=== PATIENT | male | born 1985 | race Caucasian/White ===

== ENCOUNTER 2016-11-08 13:50 | Emergency (ER) | payer SELFPAY ==
[~2016-11-08 13:50] MED LIST: ERYT1OIN6 EACHEYE; HYDR-971 PO
[2016-11-08 14:08] VITALS: BP 130/67
[2016-11-08] MEDS ORDERED: NAPROXEN 500 MG TABLET PO STA (14:16)
[2016-11-08] MEDS ORDERED: HYDROCODONE/APAP 5/325MG TABLET. PO ONE (14:30)
--- NOTE | 2016-11-08 14:33 | PHYS DOC ---
Past Medical History Past Medical History: No Pertinent History Past Surgical History: No Surgical History Alcohol Use: Occasionally Drug Use: Marijuana Adult General Chief Complaint Chief Complaint: HAND PROBLEM HPI HPI Patient is a 31 year old male with no significant medical history who presents with right hand pain that began a couple days prior to coming to the ED after pieces of lumber fell on his right hand from a truck bed. Review of Systems Review of Systems Constitutional: Denies fever or chills [] Musculoskeletal: Right hand pain Integument: Denies rash or skin lesions [] Neurologic: Denies headache, focal weakness or sensory changes [] Endocrine: Denies polyuria or polydipsia [] Current Medications Current Medications Current Medications Medications (Trade) Dose Ordered Sig/Krissy Start Time Stop Time Status Last Admin Dose Admin Acetaminophen/ Hydrocodone Bitart (Lortab 5/325) 1 tab 1X ONCE 11/08/16 14:30 11/08/16 14:31 DC 11/08/16 14:51 1 TAB Naproxen (Naprosyn) 500 mg 1X STAT 11/08/16 14:16 11/08/16 14:26 DC 11/08/16 14:51 500 MG Allergies Allergies Allergies Coded Allergies Type Severity Reaction Last Updated Verified No Known Drug Allergies 02/24/15 No Physical Exam Physical Exam Constitutional: Well developed, well nourished, no acute distress, non-toxic appearance. [] Skin: Warm, dry, no erythema, no rash. [] Back: No tenderness, no CVA tenderness. [] Extremities: Right hand with no obvious deformity. No ecchymosis noted on the right hand. Tenderness on palpation on the right hand proximal phalanges on the dorsal side. Full range of motion to the right hand. +2 right radial pulse. Cap refill less than 2 seconds the right upper extremity. Sensation intact to the right upper extremity. Adequate ulna radial medial sensation to the right hand. Neurologic: Alert and oriented X 3, normal motor function, normal sensory function, no focal deficits noted. [] Psychologic: Affect normal, judgement normal, mood normal. [] Current Patient Data Vital Signs Vital Signs Date Time Temp Pulse Resp B/P Pulse Ox O2 Delivery O2 Flow Rate FiO2 11/08/16 14:51 Room Air 11/08/16 14:08 94 94 EKG EKG [] Radiology/Procedures Radiology/Procedures [] Course & Med Decision Making Course & Med Decision Making Pertinent Labs and Imaging studies reviewed. (See chart for details) Patient is in the ED with right hand contusion after pieces of lumber fell on his right hand. Right hand x-ray interpreted by radiologist is negative for any acute findings. Jagdish wrap was applied to the right hand by the Ed RN, neurovascular exam in normal with Cap refill <2 seconds. Ice elevation was encouraged. Discharged with Ultracet. Follow-up with ortho in one week. Dragon Disclaimer Dragon Disclaimer This electronic medical record was generated, in whole or in part, using a voice recognition dictation system. Departure Departure Impression: Primary Impression: Contusion of right hand Disposition: HOME, SELF-CARE Condition: STABLE Referrals: NO PCP (PCP) YANET STANFORD MD Follow-up with the provided orthopedic doctor in a week Patient Instructions: Contusion Additional Instructions: You were seen for right hand contusion. Keep the Jagdish wrap on as tolerated. Apply ice to the hand and elevate it. Your x-rays were negative. Follow-up with the provided orthopedic doctor in a week if pain continues. Take the prescribed medicines as needed. Scripts Tramadol Hcl/Acetaminophen (Ultracet Tablet)1 Each Tablet1 Tab PO Q6HRS #30 TAB Prov:MAYURI FUENTES APRN 11/08/16 Problem Qualifiers Primary Impression: Contusion of right hand Encounter type: initial encounter Qualified Code: S60.221A - Contusion of right hand, initial encounter MAYURI FUENTES APRN Nov 08, 2016 14:33
--- NOTE | 2016-11-08 14:40 | RAD ---
Right hand, 3 views, 11/08/2016: History: Pain, injury A small calcific density is noted along the: aspect of the base of the fifth metacarpal. There are sclerotic bony margins at this level suggesting that this is an old injury. No definite acute fracture or dislocation is identified. The soft tissues are unremarkable. IMPRESSION: No acute bony abnormality is detected.
[2016-11-08] MEDS ORDERED: TRAM1TAB49 PO (15:20)
== END 2016-11-08 15:26 | disposition home or self-care (01) ==
LOC: ER 13:50
DX: S60.221A Contusion of right hand, initial encounter (principal); F12.10 Cannabis abuse, uncomplicated; W20.8XXA Other cause of strike by thrown, projected or falling object, initial encounter; Y93.89 Activity, other specified; Y92.89 Other specified places as the place of occurrence of the external cause; Y99.8 Other external cause status
CPT/HCPCS: 73130; 99284

== ENCOUNTER 2016-12-21 15:12 | Emergency (ER) | payer SELFPAY ==
[~2016-12-21] VITALS: Ht 162.6 cm; Wt 68.0 kg
[~2016-12-21 15:12] MED LIST changes: +TRAM1TAB49 PO
[2016-12-21 15:47] VITALS: BP 128/71
--- NOTE | 2016-12-21 15:51 | RAD ---
EXAM: Left hand 3 views. HISTORY: Left fourth finger injury. COMPARISON: None. FINDINGS: There is an avulsion fracture along the volar base of the fourth middle phalanx with surrounding soft tissue swelling. Alignment is maintained. No fractures are seen throughout the remainder of the hand. IMPRESSION: 1. Avulsion fracture along the volar base of the fourth middle phalanx.
--- NOTE | 2016-12-21 16:09 | PHYS DOC ---
Past Medical History Past Medical History: No Pertinent History Past Surgical History: No Surgical History Additional Information: 1 PACK/DAY Alcohol Use: Occasionally Additional Information: 6 PACK/WEEK Drug Use: Marijuana Adult General Chief Complaint Chief Complaint: FINGER INJURY HPI HPI Patient is a 31 year old male who presents with a finger injury. Patient reports he was climbing into a semi truck yesterday evening when he slipped, and his finger got caught in a hole in the door of the semi. He has been having pain the affected finger since then. He was having enough pain at work today that his boss told him he needed to go home since it was affecting his work. He has not taken anything for pain. No other acute complaints. Review of Systems Review of Systems Constitutional: Denies fever or chills Respiratory: Denies cough or shortness of breath Cardiovascular: Denies chest pain GI: Denies abdominal pain, nausea, vomiting, or diarrhea Musculoskeletal: L 4th finger pain Neurologic: Denies headache, focal weakness or sensory changes Current Medications Current Medications Current Medications Medications (Trade) Dose Ordered Sig/Krissy Start Time Stop Time Status Last Admin Dose Admin Naproxen (Naprosyn) 500 mg 1X ONCE 12/21/16 16:15 12/21/16 16:16 DC Allergies Allergies Allergies Coded Allergies Type Severity Reaction Last Updated Verified No Known Drug Allergies 02/24/15 No Physical Exam Physical Exam Constitutional: Well developed, well nourished, no acute distress, non-toxic appearance HENT: Normocephalic, atraumatic Eyes: EOMI, conjunctiva normal, no discharge Neck: No stridor Pulmonary: No respiratory distress Skin: Warm, dry Neurologic: Alert and oriented X 3 Musculoskeletal: L 4th finger swollen compared to other fingers; flexion of 4th finger limited by swelling; extension intact; sensation to light touch intact, brisk cap refill; PIP joint generally TTP Psychologic: Affect normal, judgement normal, mood normal Current Patient Data Vital Signs Vital Signs Date Time Temp Pulse Resp B/P Pulse Ox O2 Delivery O2 Flow Rate FiO2 12/21/16 15:47 98.0 94 18 98 Room Air 98.0 EKG EKG [] Radiology/Procedures Radiology/Procedures X-ray L hand: IMPRESSION: 1. Avulsion fracture along the volar base of the fourth middle phalanx. Course & Med Decision Making Course & Med Decision Making Pertinent Labs and Imaging studies reviewed. (See chart for details) Patient is 31-year-old male who presents with left fourth finger injury. X-ray already obtained, results as above. Dose of naproxen ordered for pain control. As patient has limited flexion (although this appears due to swelling rather than flexor tendon injury), I spoke with Dr. Smith to discuss case. Per his recommendation will brant tape the finger. We will discharge him home and have him follow-up with ortho as an outpatient. Discharged with prescription for pain medication. Given instructions for follow-up and return precautions. Dragon Disclaimer Dragon Disclaimer This electronic medical record was generated, in whole or in part, using a voice recognition dictation system. Departure Departure Impression: Primary Impression: Fracture of finger of left hand Disposition: HOME, SELF-CARE Condition: STABLE Referrals: NO PCP (PCP) YANET SMITH MD Patient Instructions: Finger Fracture Additional Instructions: Thank you for allowing us to provide care today in the Emergency Department. Take the provided medication as directed. Use caution when taking the hydrocodone as it can make you drowsy. Schedule a follow up appointment with your primary care doctor. Return promptly to the Emergency Department if you develop any new or concerning symptoms. Scripts Naproxen 500 Mg [id number] Mg PO BID PRN PAIN #30 Prov:FIDEL GOFF MD 12/21/16 Hydrocodone/Apap 5-325 ([place] 5-325 Tablet)1 Each Tablet1 Tab PO PRN Q6HRS PRN PAIN #15 TAB Prov:FIDEL GOFF MD 12/21/16 FIDEL GOFF MD Dec 21, 2016 16:08
[2016-12-21] MEDS ORDERED: NAPROXEN 500 MG TABLET PO ONE (16:15)
[2016-12-21] MEDS ORDERED: HYDR-971 PO (16:23)
[2016-12-21] MEDS ORDERED: NAPR500T3 PO (16:23)
== END 2016-12-21 16:31 | disposition home or self-care (01) ==
LOC: ER 15:12
DX: S62.625A Displaced fracture of middle phalanx of left ring finger, initial encounter for closed fracture (principal); F12.10 Cannabis abuse, uncomplicated; F17.210 Nicotine dependence, cigarettes, uncomplicated; W23.0XXA Caught, crushed, jammed, or pinched between moving objects, initial encounter; Y93.39 Activity, other involving climbing, rappelling and jumping off; Y92.89 Other specified places as the place of occurrence of the external cause; Y99.8 Other external cause status
CPT/HCPCS: 73130; 99284

== ENCOUNTER 2017-04-07 23:50 | Emergency (ER) | payer SELFPAY ==
[~2017-04-07] VITALS: Ht 162.6 cm; Wt 56.7 kg
[~2017-04-07 23:50] MED LIST changes: +NAPR500T3 PO; -TRAM1TAB49 PO; +TRAM1TAB56 PO
[2017-04-08] MEDS ORDERED: IV NORMAL SALINE 1000ML BAG 1,000 ML IV SCH (00:15)
[2017-04-08] MEDS ORDERED: 0.9 % SODIUM CHLORIDE 10 ML DISP.SYRIN. IV PRN (00:15)
[2017-04-08] MEDS ORDERED: TETRACAINE 0.5% OPHTH SOLUTION 4ML BOTTLE. OU ONE (00:30)
[2017-04-08] MEDS ORDERED: KETOROLAC TROMETHAMINE 30 MG/ML INJ. IV ONE (00:30)
[2017-04-08] MEDS ORDERED: FLUORESCEIN OPHTH TEST STRIP. OU ONE (00:30)
[2017-04-08 00:37] LABS: BASE EXCESS COOX -2 mmol/L (-3-3); CARBON MONOXIDE 7.7 % (0.0-1.9); HCO3 COOX 22 mmol/L (21-28); METHEMOGLOBIN 0.3 % (0.0-1.9); OXYHEMOGLOBIN 89.7 %; PCO2 COOX 35 mmHg (35-46); PH COOX 7.42 (7.35-7.45); PO2 COOX 111 mmHg (85-108); SAT O2 COOX 98 % (92-99); TOTAL HEMOGLOBIN 14.8 g/dL
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
[2017-04-08] MEDS ORDERED: NAPR500T PO (01:59)
[2017-04-08] MEDS ORDERED: TOBR5DRO13 EACHEYE (01:59)
[2017-04-08] MEDS ORDERED: SILV20CR14 TP (01:59)
[2017-04-08] MEDS ORDERED: HYDR-2758 PO (01:59)
[2017-04-08 02:02] VITALS: BP 132/84
--- NOTE | 2017-04-08 07:25 | RAD ---
Chest, 2 views, 04/08/2017: History: Cough Comparison is made to a study from 07/08/2016. The heart size and pulmonary vascularity are normal. No pulmonary infiltrates are seen. There is no evidence of pleural fluid. IMPRESSION: No acute cardiopulmonary abnormality is detected.
--- NOTE | 2017-04-08 07:30 | RAD ---
Bilateral feet, 6 views, 04/08/2017: History: Foot pain, stepped on glass, possible foreign body No fracture or dislocation is identified. No radiopaque foreign body is evident in the soft tissues. IMPRESSION: No significant abnormality is detected.
== END 2017-04-08 02:19 | disposition home or self-care (01) ==
LOC: ER 23:50
DX: T21.11XA Burn of first degree of chest wall, initial encounter (principal); S05.02XA Injury of conjunctiva and corneal abrasion without foreign body, left eye, initial encounter; S05.01XA Injury of conjunctiva and corneal abrasion without foreign body, right eye, initial encounter; S91.332A Puncture wound without foreign body, left foot, initial encounter; S91.331A Puncture wound without foreign body, right foot, initial encounter; J70.5 Respiratory conditions due to smoke inhalation; R05 Cough; F17.210 Nicotine dependence, cigarettes, uncomplicated; F14.10 Cocaine abuse, uncomplicated; F12.10 Cannabis abuse, uncomplicated; I10 Essential (primary) hypertension; X08.8XXA Exposure to other specified smoke, fire and flames, initial encounter; Y93.89 Activity, other specified; Y92.89 Other specified places as the place of occurrence of the external cause; Y99.8 Other external cause status
CPT/HCPCS: 36600; 71020; 73630; 82805; 96361; 96374; 99285; J1885; J7030

== ENCOUNTER 2017-04-16 02:13 | Emergency (ER) | payer OTHER ==
[~2017-04-16] VITALS: Ht 162.6 cm; Wt 59.0 kg
[~2017-04-16 02:13] MED LIST changes: +HYDR-2758 PO; +NAPR500T PO; +SILV20CR14 TP; +TOBR5DRO13 EACHEYE
[2017-04-16 02:31] VITALS: BP 125/77
--- NOTE | 2017-04-16 03:13 | PHYS DOC ---
Past Medical History Past Medical History: No Pertinent History Past Surgical History: No Surgical History Alcohol Use: Heavy Drug Use: Cocaine, Marijuana Adult General Chief Complaint Chief Complaint: FINGER INJURY HPI HPI 32-year-old male with a history of multiple prior left fourth digit injury with multiple prior sprains now presents to the emergency department with a sprain of the same finger. 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 Common for him to get the finger snagged and twisted during this process patient is reinjured it and it's been sore and swollen since so he came to emergency department for evaluation Review of Systems Review of Systems Constitutional: Denies fever or chills [] Eyes: Denies change in visual acuity, redness, or eye pain [] HENT: Denies nasal congestion or sore throat [] Respiratory: Denies cough or shortness of breath [] Cardiovascular: No additional information not addressed in HPI [] GI: Denies abdominal pain, nausea, vomiting, bloody stools or diarrhea [] : Denies dysuria or hematuria [] Musculoskeletal: Denies back pain or joint pain [] Integument: Denies rash or skin lesions [] Neurologic: Denies headache, focal weakness or sensory changes [] Endocrine: Denies polyuria or polydipsia [] Allergies Allergies Allergies Coded Allergies Type Severity Reaction Last Updated Verified No Known Drug Allergies 02/24/15 No Physical Exam Physical Exam Well appearing male in no acute distress soft tissue swelling in the distribution of the PIP left fourth digit. No bony tenderness or deformity. No skin changes. MCP and DIP unremarkable. Patient does have flexion and extension intact Constitutional: Well developed, well nourished, no acute distress, non-toxic appearance. [] HENT: Normocephalic, atraumatic, bilateral external ears normal, oropharynx moist, no oral exudates, nose normal. [] Eyes: EOMI, conjunctiva normal, no discharge. [] Neck: Normal range of motion, no tenderness, supple, no stridor. [] Cardiovascular: No tachycardia in triage Lungs & Thorax: Symmetrical chest wall excursion with no tachypnea] Abdomen: Normal appearing abdomen Skin: Warm, dry, no erythema, no rash. [] Back: No tenderness, no CVA tenderness. [] Extremities: No tenderness, no cyanosis, no clubbing, ROM intact, no edema. [] Neurologic: Alert and oriented X 3, normal motor function, normal sensory function, no focal deficits noted. [] Psychologic: Affect normal, judgement normal, mood normal. [] Current Patient Data Vital Signs Vital Signs Date Time Temp Pulse Resp B/P (MAP) Pulse Ox O2 Delivery O2 Flow Rate FiO2 04/16/17 02:31 98.4 72 18 125/77 (93) 97 Room Air 98.4 EKG EKG [] Radiology/Procedures Radiology/Procedures Procedure aluminum foam splint applied by nurseCANDIDO M.D. 5 inch aluminum foam splint shaved by me and applied the volar aspect of left fourth digit and taped in place. Neurovascularly intact status post application. Patient tolerated procedure well no complications [] Course & Med Decision Making Course & Med Decision Making Pertinent Labs and Imaging studies reviewed. (See chart for details) Signs and symptoms consistent with sprain of the left fourth digit which patient has had multiple times previously and has chronic swelling and soft tissue deformity as a result. Negative for acute fracture or dislocation. Aluminum/foam splint applied C note. The pro-rest ice and elevate and follow-up with his doctor, Workmen's Compensation, and hand surgery with Workmen's Compensation referral as needed. No further workup or treatment indicated at this time patient agrees with outpatient follow-up and strict return precautions given [] Dragon Disclaimer Dragon Disclaimer This electronic medical record was generated, in whole or in part, using a voice recognition dictation system. Departure Departure Impression: Primary Impression: Sprain of ring finger Disposition: 01 HOME, SELF-CARE Condition: IMPROVED Referrals: NO PCP (PCP) Patient Instructions: Finger Sprain, [id number] Additional Instructions: You have sprained the same finger of the sprain multiple times before. Rest apply ice and elevate above your heart whenever possible. Wear aluminum foam splint until follow-up with your doctor, Workmen's Compensation, and hand surgery as needed. In the future be sure to take the necessary precautions and be careful not to reinjure this finger again. DIANA MUNOZ MD Apr 16, 2017 03:13
[2017-04-16] MEDS ORDERED: IBUPROFEN 800 MG TABLET. PO ONE (03:30)
--- NOTE | 2017-04-16 07:14 | RAD ---
3 view left hand study History: Injured ring finger. Pain. Findings: No acute fracture or dislocation or osteolytic process is seen. IMPRESSION: No acute fracture.
== END 2017-04-16 03:30 | disposition home or self-care (01) ==
LOC: ER 02:13
DX: S63.615A Unspecified sprain of left ring finger, initial encounter (principal); F10.10 Alcohol abuse, uncomplicated; F12.10 Cannabis abuse, uncomplicated; F14.10 Cocaine abuse, uncomplicated; X58.XXXA Exposure to other specified factors, initial encounter; Y93.89 Activity, other specified; Y92.89 Other specified places as the place of occurrence of the external cause; Y99.8 Other external cause status
CPT/HCPCS: 29130; 73130; 99284

== ENCOUNTER 2017-10-25 12:32 | Emergency (ER) | payer SELFPAY, OTHER | END 2017-10-25 15:04 | disposition home or self-care (01) | LOC: ER 12:32 | DX: S63.635A Sprain of interphalangeal joint of left ring finger, initial encounter (principal); F12.10 Cannabis abuse, uncomplicated; F14.10 Cocaine abuse, uncomplicated; W23.0XXA Caught, crushed, jammed, or pinched between moving objects, initial encounter; Y93.89 Activity, other specified; Y92.89 Other specified places as the place of occurrence of the external cause; Y99.8 Other external cause status | CPT/HCPCS: 73140; 99284 ==

== ENCOUNTER 2018-02-03 08:54 | Emergency (ER) | payer SELFPAY | END 2018-02-03 09:55 | disposition home or self-care (01) | LOC: ER 08:54 | DX: B30.9 Viral conjunctivitis, unspecified (principal); H10.89 Other conjunctivitis; F10.20 Alcohol dependence, uncomplicated; F14.10 Cocaine abuse, uncomplicated; F12.10 Cannabis abuse, uncomplicated | CPT/HCPCS: 99283 ==

== ENCOUNTER 2018-04-15 10:01 | Emergency (ER) | payer SELFPAY ==
[2018-04-15 10:35] LABS: ADD MAN DIFF? NO
[2018-04-15 10:37] LABS: BASO % 1 % (0-3); EOS # 0.1 x10^3/uL (0.0-0.7); EOS % 2 % (0-3); HEMATOCRIT 46.2 % (39.0-53.0); HEMOGLOBIN 15.8 g/dL (13.0-17.5); LYMPH # 1.4 x10^3/uL (1.0-4.8); LYMPH % 22 % (24-48); MEAN CORPUSCULAR HEMOGLOBIN 32 pg (25-35); MEAN CORPUSCULAR HGB CONC 34 g/dL (31-37); MEAN CORPUSCULAR VOLUME 95 fL (79-100); MONO # 0.6 x10^3/uL (0.0-1.1); MONO % 10 % (0-9); NEUT # 4.1 x10^3uL (1.8-7.7); NEUT % 66 % (31-73); PLATELET COUNT 181 x10^3/uL (140-400); RED BLOOD COUNT 4.87 x10^6/uL (4.30-5.70); RED CELL DISTRIBUTION WIDTH 13.7 % (11.5-14.5); WHITE BLOOD COUNT 6.3 x10^3/uL (4.0-11.0)
[2018-04-15] MEDS: IV NORMAL SALINE 1000ML BAG 1,000 ML IV ×2 (10:37→11:08)
[2018-04-15] MEDS: ONDANSETRON PF 4 MG/2 ML VIAL. IV (10:37)
[2018-04-15 10:47] LABS: ANION GAP 9 (6-14); BLOOD UREA NITROGEN 22 mg/dL (8-26); BUN/CREATININE RATIO 24 (6-20); CARBON DIOXIDE 27 mmol/L (21-32); CHLORIDE 100 mmol/L (98-107); CREATININE 0.9 mg/dL (0.7-1.3); GFR 98.4; GLUCOSE 124 mg/dL (70-99); POTASSIUM 4.2 mmol/L (3.5-5.1); SODIUM 136 mmol/L (136-145)
[2018-04-15 10:53] LABS: ALK PHOS 119 U/L (46-116); ALT (SGPT) 30 U/L (16-63); AST (SGOT) 18 U/L (15-37); CREATINE KINASE 142 U/L (39-308); TOTAL BILIRUBIN 0.4 mg/dL (0.2-1.0); TOTAL PROTEIN 8.1 g/dL (6.4-8.2)
[2018-04-15 11:48] LABS: BILIRUBIN,URINE NEGATIVE (NEG); CLARITY,URINE CLEAR; COLOR,URINE YELLOW; GLUCOSE,URINE NEGATIVE (NEG); NITRITE,URINE NEGATIVE (NEG); PROTEIN,URINE NEGATIVE (NEG-TRACE); UROBILINOGEN,URINE 0.2 mg/dL (0.2 mg/dL)
[2018-04-15 11:52] LABS: SQUAMOUS EPITHELIAL CELL,UR FEW /LPF
[2018-04-15 11:53] LABS: BACTERIA,URINE 0 /HPF (0-FEW); RBC,URINE 0 /HPF (0-2); WBC,URINE OCC /HPF (0-4)
== END 2018-04-15 12:00 | disposition home or self-care (01) ==
LOC: ER 10:01
DX: E86.0 Dehydration (principal)
CPT/HCPCS: 36415; 80053; 81001; 82550; 85025; 96361; 96374; 99284; J2405; J7030

== ENCOUNTER 2018-04-25 04:45 | Emergency (ER) | payer SELFPAY ==
[2018-04-25] MEDS: HYDROcodone/APAP 5/325MG 1 TAB TABLET PO (05:05)
[2018-04-25] MEDS: KETOROLAC 30 MG/ML INJ. IM (05:06)
== END 2018-04-25 05:11 | disposition home or self-care (01) ==
LOC: ER 04:45
DX: S02.5XXA Fracture of tooth (traumatic), initial encounter for closed fracture (principal); F10.10 Alcohol abuse, uncomplicated; X58.XXXA Exposure to other specified factors, initial encounter; Y93.89 Activity, other specified; Y92.89 Other specified places as the place of occurrence of the external cause; Y99.8 Other external cause status
CPT/HCPCS: 96372; 99283; J1885

== ENCOUNTER 2020-07-05 18:53 | Emergency (ER) | payer SELFPAY ==
[~2020-07-05] VITALS: Ht 162.6 cm; Wt 72.7 kg
[~2020-07-05 18:53] MED LIST changes: +AMOX500C PO; +CETI10TA74 PO; -HYDR-2758 PO; +HYDR-2761 PO; +HYDR-3164 PO; -HYDR-971 PO; +KETO5DRO4 EACHEYE; +NAPR-514 PO; +NAPR-683 PO; -NAPR500T PO; -NAPR500T3 PO; +TOBR5DRO6 EACHEYE
[2020-07-05 20:11] LABS: BASO % 0 % (0-3); EOS # 0.4 x10^3/uL (0.0-0.7); EOS % 5 % (0-3); HEMATOCRIT 30.3 % (39.0-53.0); HEMOGLOBIN 10.5 g/dL (13.0-17.5); LYMPH # 1.3 x10^3/uL (1.0-4.8); LYMPH % 18 % (24-48); MEAN CORPUSCULAR HEMOGLOBIN 33 pg (25-35); MEAN CORPUSCULAR HGB CONC 35 g/dL (31-37); MEAN CORPUSCULAR VOLUME 97 fL (79-100); MONO # 0.6 x10^3/uL (0.0-1.1); MONO % 8 % (0-9); NEUT % 69 % (31-73); PLATELET COUNT 186 x10^3/uL (140-400); RED BLOOD COUNT 3.14 x10^6/uL (4.30-5.70); RED CELL DISTRIBUTION WIDTH 12.8 % (11.5-14.5); WHITE BLOOD COUNT 7.3 x10^3/uL (4.0-11.0)
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
[2020-07-05 20:22] LABS: CALCIUM 8.6 mg/dL (8.5-10.1); CREATININE 0.8 mg/dL (0.7-1.3); GFR 111.3
[2020-07-05 20:28] LABS: ALBUMIN/GLOBULIN RATIO 0.8 (1.0-1.7); TOTAL BILIRUBIN 0.7 mg/dL (0.2-1.0); TOTAL PROTEIN 6.9 g/dL (6.4-8.2)
--- NOTE | 2020-07-05 20:58 | RAD ---
EXAM: Frontal view of the chest, AP views of the abdomen in upright and supine positions. CLINICAL INDICATION: Reason: CONSTIPATION / Spl. Instructions: / History: COMPARISON: None. FINDINGS and IMPRESSION: The heart is not enlarged. Mediastinal and hilar contours are normal. Emphysematous changes are seen. Left lung base airspace opacities, possibly atelectasis or developing consolidation. Small left pleural effusion. No pneumothorax. No abnormal small or large bowel dilatation. Moderate to large volume colonic stool content is seen. No abnormal soft tissue mass effect. No suspicious calcifications are seen. No free intraperitoneal gas. Electronically signed by: Milton Falk MD (07/05/2020 8:55 PM) [facility]
[2020-07-05 21:39] LABS: BILIRUBIN,URINE SMALL (NEG); NITRITE,URINE NEGATIVE (NEG); PH,URINE 7.5 (<5.0-8.0); PROTEIN,URINE NEGATIVE (NEG-TRACE)
[2020-07-05 21:43] LABS: COLOR,URINE DK YELLOW
[2020-07-05 21:44] LABS: SQUAMOUS EPITHELIAL CELL,UR OCC /LPF
[2020-07-05 21:45] LABS: AMPHETAMINE/METHAMPHETAMINE NEG (NEG); BARBITURATES NEG (NEG); BENZODIAZEPINES NEG (NEG); CANNABINOIDS POS (NEG); COCAINE NEG (NEG); METHADONE NEG (NEG); OPIATES POS (NEG); PHENCYCLIDINE NEG (NEG)
[2020-07-05 21:47] LABS: BACTERIA,URINE 0 /HPF (0-FEW); RBC,URINE 0 /HPF (0-2); WBC,URINE 0 /HPF (0-4)
[2020-07-05 21:48] LABS: AMORPHOUS SEDIMENT,UR PRESENT /HPF; CLARITY,URINE HAZY
[2020-07-05] MEDS ORDERED: CLIN300C8 PO (22:28)
[2020-07-05] MEDS ORDERED: SENN1TAB62 PO (22:30)
[2020-07-05 23:46] VITALS: BP 132/78
== END 2020-07-05 23:59 | disposition home or self-care (01) ==
LOC: ER 18:53
DX: T85.79XA Infection and inflammatory reaction due to other internal prosthetic devices, implants and grafts, initial encounter (principal); J18.9 Pneumonia, unspecified organism; K59.00 Constipation, unspecified; F17.200 Nicotine dependence, unspecified, uncomplicated; Y71.3 Surgical instruments, materials and cardiovascular devices (including sutures) associated with adverse incidents; Y92.89 Other specified places as the place of occurrence of the external cause
CPT/HCPCS: 36415; 74022; 80053; 80307; 81001; 83690; 85025; 99285

== ENCOUNTER 2021-01-16 03:39 | Emergency (ER) | payer SELFPAY ==
[~2021-01-16] VITALS: Ht 162.6 cm; Wt 66.2 kg
[~2021-01-16 03:39] MED LIST changes: +CLIN300C9 PO; +SENN1TAB62 PO
[2021-01-16 03:40] VITALS: BP 104/76
[2021-01-16] MEDS ORDERED: LIDOCAINE 2%/EPI 1:100,000 20 ML VIAL. ONE (03:57)
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
[2021-01-16] MEDS ORDERED: LIDOCAINE 2%/EPI 1:100,000 20 ML VIAL. INJ ONE (04:30)
--- NOTE | 2021-01-16 04:43 | RAD ---
PQRS Compliance Statement: One or more of the following individualized dose reduction techniques were utilized for this examinat ion: 1. Automated exposure control 2. Adjustment of the mA and/or kV according to patient size 3. Use of iterative reconstruction technique CT HEAD WITHOUT CONTRAST History: Reason: fall, etoh use, unknown loc / Spl. Instructions: / History: Comparison: CT head without contrast June 26, 2018. Procedure: Axial images are obtained of the head from the skull base through the vertex without IV co ntrast. Findings: The ventricles and sulci are normal for the patient's age. No mass-effect, midline shift, hemorrhage, extra-axial fluid collection, or obvious acute infarction is identified. Basilar cisterns are patent. Bone windows demonstrate no acute calvarial abnormality. Severe mucosal thickening of the bilateral ethmoid sinuses.. Mastoid air cells are well aerated. IMPRESSION: No acute intracranial abnormality. Electronically signed by: Scottie Roth MD (01/16/2021 4:40 AM) [facility]
--- NOTE | 2021-01-16 04:45 | RAD ---
RIGHT TIBIA FIBULA AP LATERAL Clinical Indication: Reason: fall, question retained glass to left urena Comparison: None. Findings: The knee and ankle joints are grossly intact. There is no acute fracture or dislocation. There is no significant soft tissue swelling. No radiopaque foreign body is identified. IMPRESSION: No radiopaque foreign body is seen. Electronically signed by: Scottie Roth MD (01/16/2021 4:42 AM) [facility]
== END 2021-01-16 05:37 | disposition home or self-care (01) ==
LOC: ER 03:39
DX: S46.321A Laceration of muscle, fascia and tendon of triceps, right arm, initial encounter (principal); S81.811A Laceration without foreign body, right lower leg, initial encounter; F10.20 Alcohol dependence, uncomplicated; Y90.9 Presence of alcohol in blood, level not specified; R51.9 Headache, unspecified; F17.200 Nicotine dependence, unspecified, uncomplicated; W01.110A Fall on same level from slipping, tripping and stumbling with subsequent striking against sharp glass, initial encounter; Y93.89 Activity, other specified; Y92.89 Other specified places as the place of occurrence of the external cause; Y99.8 Other external cause status
CPT/HCPCS: 12002; 70450; 73590; 99284; J3490

== ENCOUNTER 2021-03-09 22:42 | Emergency (ER) | payer SELFPAY ==
[~2021-03-09] VITALS: Ht 167.6 cm; Wt 67.4 kg
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
[2021-03-09 22:55] LABS: BASO # 0.1 x10^3/uL (0.0-0.2); BASO % 1 % (0-3); EOS # 0.4 x10^3/uL (0.0-0.7); EOS % 4 % (0-3); HEMATOCRIT 47.7 % (39.0-53.0); HEMOGLOBIN 16.3 g/dL (13.0-17.5); LYMPH # 3.7 x10^3/uL (1.0-4.8); LYMPH % 42 % (24-48); MEAN CORPUSCULAR HEMOGLOBIN 33 pg (25-35); MEAN CORPUSCULAR HGB CONC 34 g/dL (31-37); MEAN CORPUSCULAR VOLUME 96 fL (79-100); MONO # 0.6 x10^3/uL (0.0-1.1); MONO % 7 % (0-9); NEUT # 4.1 x10^3/uL (1.8-7.7); NEUT % 46 % (31-73); PLATELET COUNT 196 x10^3/uL (140-400); RED BLOOD COUNT 4.99 x10^6/uL (4.30-5.70); RED CELL DISTRIBUTION WIDTH 13.3 % (11.5-14.5); WHITE BLOOD COUNT 8.9 x10^3/uL (4.0-11.0)
[2021-03-09 23:08] LABS: CALCIUM 8.4 mg/dL (8.5-10.1); CREATININE 0.9 mg/dL (0.7-1.3); GFR 97.2; POTASSIUM 3.5 mmol/L (3.5-5.1)
--- NOTE | 2021-03-09 23:10 | RAD ---
Exam: CT head and cervical spine without contrast INDICATION: Head injury TECHNIQUE: Sequential axial images through the head and cervical spine were obtained without the admi nistration of IV contrast. Exposure: One or more of the following in the visualized dose reduction techniques were utilized for this examination: 1. Automated exposure control 2. Adjustment of the MA and/or KV according to patient size 3. Use of iterative of reconstructive technique Comparisons: None FINDINGS: Head: No focal parenchymal lesion or hemorrhage is identified. There is no midline shift or sulcal effaceme nt. No acute vascular territory infarction is identified. Patel-white distinction is preserved. The ventricular system is within normal limits without compression hydrocephalus. The basal cisterns are well maintained. Extra soft tissue scalp contusion overlying the right frontal region. The visualized portions of the paranasal sinuses and mastoid air cells are well-pneumatized. No acute fractures. Cervical spine: Vertebral body heights and alignment are well-maintained. Fracture to the cervical spine is not identified. No significant spondylotic change in cervical spine. Visualized paraspinal soft tissues are unremarkable. IMPRESSION: 1. Extra cranial soft tissue scalp contusion overlying the right frontal region without underlying o sseous or intracranial abnormality. 2. Negative CT C-spine for acute traumatic injury. Electronically signed by: Dhara Perez MD (03/09/2021 11:07 PM) [facility]
[2021-03-09 23:14] LABS: ALBUMIN 4.5 g/dL (3.4-5.0); ALBUMIN/GLOBULIN RATIO 1.3 (1.0-1.7); TOTAL BILIRUBIN 0.3 mg/dL (0.2-1.0)
--- NOTE | 2021-03-09 23:33 | RAD ---
XR PELVIS 1-2V, XR CHEST 1V Clinical History: Reason: fall intoxication One view chest: Technique: AP view of the chest was obtained at 03/09/2021 11:00 PM. Comparison: None. Findings: The cardiomediastinal silhouette is normal. The pulmonary vasculature is normal. The lungs and pleura l margins are clear. Impression: No evidence of an acute cardiopulmonary process. End impression One view pelvis: History: Pain AP view the pelvis was obtained. The visualized osseous structures appear intact. There is obscuration of the bony detail of the sacru m due to overlying bowel gas. Impression: No acute findings. Electronically signed by: Jh Kenney III, MD (03/09/2021 11:31 PM) [facility]
[2021-03-09] MEDS ORDERED: ZIPRASIDONE IM 20 MG VIAL. IM ONE (23:47)
[2021-03-10] MEDS ORDERED: ZIPRASIDONE IM 20 MG VIAL. IM ONE
[2021-03-10] MEDS ORDERED: IV NORMAL SALINE 1000ML BAG 1,000 ML IV ONE ×2 (00:30→02:30)
[2021-03-10 06:41] VITALS: BP 116/72
[2021-03-10] MEDS ORDERED: NEOMY/BACITR/POLYMYXIN OINT PACKET. TP ONE (07:00)
== END 2021-03-10 06:45 | disposition home or self-care (01) ==
LOC: ER 22:42
DX: S00.93XA Contusion of unspecified part of head, initial encounter (principal); R51.9 Headache, unspecified; M54.2 Cervicalgia; F10.229 Alcohol dependence with intoxication, unspecified; Y90.8 Blood alcohol level of 240 mg/100 ml or more; F17.200 Nicotine dependence, unspecified, uncomplicated; V59.88XA Occupant (driver) (passenger) of pick-up truck or van injured in other specified transport accidents, initial encounter; Y92.488 Other paved roadways as the place of occurrence of the external cause; Y93.89 Activity, other specified; Y99.8 Other external cause status
CPT/HCPCS: 36415; 70450; 71045; 72125; 72170; 80053; 85025; 96360; 96361; 96372; 99285; G0480; J3486; J7030

== ENCOUNTER 2021-06-16 18:00 | Emergency (ER) | payer SELFPAY ==
[~2021-06-16] VITALS: Ht 165.1 cm; Wt 72.7 kg
[~2021-06-16 18:00] MED LIST changes: +ERYT1OIN3 EACHEYE; -ERYT1OIN6 EACHEYE
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
[2021-06-16] MEDS ORDERED: IOHEXOL 300 MG/ML 100ML VIAL. IV ONE (18:45)
--- NOTE | 2021-06-16 19:07 | RAD ---
EXAMINATION: 2 views of the left tibia/fibula, 2 views of the left clavicle and 3 views of left COMPARISON: 03/09/2021 INDICATION:36 years, Male, pain and tenderness, [facility]. FINDINGS: Left clavicle: No acute fracture, dislocation or subluxation. No bone erosion or periosteal reaction. No soft tissue swelling. Left hip:No acute fracture, dislocation or subluxation. No bone erosion or periosteal reaction. No so ft tissue swelling. Left tibia/fibula:No acute fracture, dislocation or subluxation. No bone erosion or periosteal reacti on. No soft tissue swelling or joint effusion. IMPRESSION: No acute osseous findings. Electronically signed by: Torsten Snider MD (06/16/2021 7:04 PM) ROH[facility]I
--- NOTE | 2021-06-16 19:07 | RAD ---
EXAMINATION: 2 views of the left tibia/fibula, 2 views of the left clavicle and 3 views of left COMPARISON: 03/09/2021 INDICATION:36 years, Male, pain and tenderness, [facility]. FINDINGS: Left clavicle: No acute fracture, dislocation or subluxation. No bone erosion or periosteal reaction. No soft tissue swelling. Left hip:No acute fracture, dislocation or subluxation. No bone erosion or periosteal reaction. No so ft tissue swelling. Left tibia/fibula:No acute fracture, dislocation or subluxation. No bone erosion or periosteal reacti on. No soft tissue swelling or joint effusion. IMPRESSION: No acute osseous findings. Electronically signed by: Torsten Snider MD (06/16/2021 7:04 PM) ROHINI
--- NOTE | 2021-06-16 19:07 | RAD ---
EXAMINATION: 2 views of the left tibia/fibula, 2 views of the left clavicle and 3 views of left COMPARISON: 03/09/2021 INDICATION:36 years, Male, pain and tenderness, [facility]. FINDINGS: Left clavicle: No acute fracture, dislocation or subluxation. No bone erosion or periosteal reaction. No soft tissue swelling. Left hip:No acute fracture, dislocation or subluxation. No bone erosion or periosteal reaction. No so ft tissue swelling. Left tibia/fibula:No acute fracture, dislocation or subluxation. No bone erosion or periosteal reacti on. No soft tissue swelling or joint effusion. IMPRESSION: No acute osseous findings. Electronically signed by: Torsten Snider MD (06/16/2021 7:04 PM) ROHINI
[2021-06-16 19:23] LABS: BASO # 0.1 x10^3/uL (0.0-0.2); BASO % 1 % (0-3); EOS % 1 % (0-3); HEMATOCRIT 43.1 % (39.0-53.0); LYMPH # 2.4 x10^3/uL (1.0-4.8); LYMPH % 30 % (24-48); MEAN CORPUSCULAR HEMOGLOBIN 34 pg (25-35); MEAN CORPUSCULAR HGB CONC 35 g/dL (31-37); MEAN CORPUSCULAR VOLUME 97 fL (79-100); MONO # 0.4 x10^3/uL (0.0-1.1); MONO % 5 % (0-9); NEUT # 4.9 x10^3/uL (1.8-7.7); NEUT % 63 % (31-73); PLATELET COUNT 216 x10^3/uL (140-400); RED BLOOD COUNT 4.47 x10^6/uL (4.30-5.70); RED CELL DISTRIBUTION WIDTH 13.8 % (11.5-14.5); WHITE BLOOD COUNT 7.7 x10^3/uL (4.0-11.0)
[2021-06-16 19:36] LABS: CALCIUM 8.4 mg/dL (8.5-10.1); CREATININE 1.1 mg/dL (0.7-1.3); GFR 76.6
[2021-06-16 19:42] LABS: ALBUMIN 3.8 g/dL (3.4-5.0); ALBUMIN/GLOBULIN RATIO 1.2 (1.0-1.7); TOTAL BILIRUBIN 0.2 mg/dL (0.2-1.0); TOTAL PROTEIN 7.1 g/dL (6.4-8.2)
[2021-06-16 20:38] VITALS: BP 124/77
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
== END 2021-06-16 22:20 | disposition home or self-care (01) ==
LOC: ER 18:00
DX: M54.6 Pain in thoracic spine (principal); G89.11 Acute pain due to trauma; M54.2 Cervicalgia; R51.9 Headache, unspecified; M54.5 Low back pain; M25.552 Pain in left hip; R10.10 Upper abdominal pain, unspecified; F10.20 Alcohol dependence, uncomplicated; Y90.9 Presence of alcohol in blood, level not specified; F17.200 Nicotine dependence, unspecified, uncomplicated; V49.49XA Driver injured in collision with other motor vehicles in traffic accident, initial encounter; Y93.89 Activity, other specified; Y92.488 Other paved roadways as the place of occurrence of the external cause; Y99.8 Other external cause status
CPT/HCPCS: 36415; 70450; 71260; 72125; 73000; 73502; 73590; 74177; 80053; 85025; 99285; Q9967

== ENCOUNTER 2021-12-12 17:28 | Emergency (ER) | payer MEDICAID ==
[~2021-12-12] VITALS: Ht 162.6 cm; Wt 75.0 kg
[~2021-12-12 17:28] MED LIST changes: +CLIN-94 PO; -CLIN300C9 PO
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
[2021-12-12 18:58] LABS: BASO # 0.1 x10^3/uL (0.0-0.2); BASO % 1 % (0-3); EOS % 1 % (0-3); HEMATOCRIT 47.2 % (39.0-53.0); HEMOGLOBIN 15.8 g/dL (13.0-17.5); LYMPH # 2.1 x10^3/uL (1.0-4.8); LYMPH % 28 % (24-48); MEAN CORPUSCULAR HEMOGLOBIN 32 pg (25-35); MEAN CORPUSCULAR HGB CONC 34 g/dL (31-37); MEAN CORPUSCULAR VOLUME 97 fL (79-100); MONO # 0.5 x10^3/uL (0.0-1.1); MONO % 6 % (0-9); NEUT # 4.8 x10^3/uL (1.8-7.7); NEUT % 64 % (31-73); PLATELET COUNT 209 x10^3/uL (140-400); RED BLOOD COUNT 4.88 x10^6/uL (4.30-5.70); RED CELL DISTRIBUTION WIDTH 13.5 % (11.5-14.5); WHITE BLOOD COUNT 7.5 x10^3/uL (4.0-11.0)
[2021-12-12 19:07] LABS: CALCIUM 9.1 mg/dL (8.5-10.1); CREATININE 0.9 mg/dL (0.7-1.3); GFR 96.6; POTASSIUM 4.3 mmol/L (3.5-5.1)
[2021-12-12 19:15] LABS: ALBUMIN 4.4 g/dL (3.4-5.0); ALBUMIN/GLOBULIN RATIO 1.2 (1.0-1.7); TOTAL BILIRUBIN 0.6 mg/dL (0.2-1.0); TOTAL PROTEIN 8.2 g/dL (6.4-8.2)
[2021-12-12 20:00] VITALS: BP 148/74
[2021-12-12] MEDS ORDERED: IOHEXOL 300 MG/ML 100ML VIAL. IV ONE (20:00)
--- NOTE | 2021-12-12 20:26 | RAD ---
Exam: CT of chest, abdomen and pelvis with contrast INDICATION: Right upper quadrant abdominal pain after fall TECHNIQUE: Sequential axial images through the chest, abdomen and pelvis obtained following the admin istration of 75 mL of Isovue-370 IV contrast. Sagittal and coronal reformatted images were reconstruc avtar from the axial data and reviewed. Exposure: One or more of the following in the visualized dose reduction techniques were utilized for this examination: 1. Automated exposure control 2. Adjustment of the MA and/or KV according to patient size 3. Use of iterative of reconstructive technique Comparisons: 06/16/2021 FINDINGS: Visualized portions of the thyroid are unremarkable. No enlarged mediastinal lymph nodes are identifi ed. Heart size is normal. No pericardial effusion. Thoracic aorta has normal course and caliber. Pulmonar y artery is not enlarged. Airways are patent. No consolidation or pneumothorax. No suspicious lung nodules. No pleural effusion or thickening. Liver, spleen, pancreas, gallbladder and adrenals are unremarkable. No perinephric inflammation or hydronephrosis. No renal or ureteral calculi are identified. Bladder is partially distended and appears thin-walled. Prostate is not enlarged. Moderate amount of stool is noted in the colon. Appendix is normal. Small bowel is unremarkable. No f ree intra-abdominal air or fluid. No obstruction. Abdominal aorta has normal course and caliber. Abdominal vasculature is patent. No enlarged intra-abdominal lymph nodes are identified. No suspicious osseous lesions or acute fractures. IMPRESSION: No sequela of acute traumatic injury identified within the chest, abdomen or pelvis. Electronically signed by: Dhara Perez MD (12/12/2021 8:24 PM) [facility]
== END 2021-12-12 20:50 | disposition home or self-care (01) ==
LOC: ER 17:28
DX: S20.211A Contusion of right front wall of thorax, initial encounter (principal); F17.200 Nicotine dependence, unspecified, uncomplicated; V49.49XA Driver injured in collision with other motor vehicles in traffic accident, initial encounter; Y93.89 Activity, other specified; Y92.488 Other paved roadways as the place of occurrence of the external cause; Y99.8 Other external cause status
CPT/HCPCS: 36415; 71260; 74177; 80053; 85025; 99285; Q9967